=== PATIENT | female | born 1995 | race African-American/Black ===

== ENCOUNTER 2017-10-30 15:43 | Emergency (ER) | payer MEDICAID ==
[2017-10-30 15:50] VITALS: BP 130/88
--- NOTE | 2017-10-30 16:31 | ER Document Report ---
ED GI/ - General Chief Complaint: Vaginal Discharge Stated Complaint: STOMACH PAIN Time Seen by Provider: 10/30/17 16:28 Mode of Arrival: Ambulatory Information source: Patient Notes: 21 yo female with vaginal discharge with odor and no menses for 2 months. No fever. No pelvic pain. TRAVEL OUTSIDE OF THE [place] IN LAST 30 DAYS: No - Related Data Allergies/Adverse Reactions: No Known Allergies Allergy (Verified 10/30/17 15:45) Past Medical History - General Information source: Patient - Social History Smoking Status: Never Smoker Chew tobacco use (# tins/day): No Frequency of alcohol use: None Drug Abuse: None Lives with: Family Family History: Reviewed & Not Pertinent Patient has suicidal ideation: No Patient has homicidal ideation: No - Medical History Medical History: Negative Renal/ Medical History: Denies: Hx Peritoneal Dialysis Surgical Hx: Negative Review of Systems - Review of Systems Constitutional: No symptoms reported EENT: No symptoms reported Cardiovascular: No symptoms reported Respiratory: No symptoms reported Gastrointestinal: No symptoms reported Genitourinary: No symptoms reported Female Genitourinary: See HPI Musculoskeletal: No symptoms reported Skin: No symptoms reported Hematologic/Lymphatic: No symptoms reported Neurological/Psychological: No symptoms reported Physical Exam - Vital signs Vitals: Temp Pulse Resp BP Pulse Ox 99.2 F 90 16 130/88 H 99 10/30/17 15:49 10/30/17 15:49 10/30/17 15:49 10/30/17 15:49 10/30/17 15:49 Interpretation: Normal - General General appearance: Appears well, Alert - HEENT Head: Normocephalic, Atraumatic Eyes: Normal Pupils: PERRL Neck: Supple - Respiratory Respiratory status: No respiratory distress Chest status: Nontender Breath sounds: Normal Chest palpation: Normal - Cardiovascular Rhythm: Regular Heart sounds: Normal auscultation Murmur: No - Abdominal Inspection: Normal Distension: No distension Bowel sounds: Normal Tenderness: Nontender Organomegaly: No organomegaly - Back Back: Normal, Nontender - Extremities General upper extremity: Normal inspection, Nontender, Normal color, Normal ROM , Normal temperature General lower extremity: Normal inspection, Nontender, Normal color, Normal ROM , Normal temperature, Normal weight bearing. No: Cindy's sign - Neurological Neuro grossly intact: Yes Cognition: Normal Orientation: AAOx4 [place] Coma Scale Eye Opening: Spontaneous [place] Coma Scale Verbal: Oriented Olivia Coma Scale Motor: Obeys Commands Olivia Coma Scale Total: 15 Speech: Normal Motor strength normal: LUE, RUE, LLE, RLE Sensory: Normal - Psychological Associated symptoms: Normal affect, Normal mood - Skin Skin Temperature: Warm Skin Moisture: Dry Skin Color: Normal Course - Re-evaluation Re-evalutation: 10/30/17 17:56 Wet prep shows trichomonas and we will treat her for that and I recommended treatment for possible gonorrhea and chlamydia. She will call me back for those results. Urinalysis and test are negative. She will follow-up with the health department for amenorrhea. 10/30/17 20:00 gonorrhea positive, chlmaydia negative, spoke with pt over the phone. and she wanted it sent to [phone] via text but i also made a copy for her. she will let the partner know that he needs to be treated. 10/31/17 23:15 - Vital Signs Vital signs: Temp Pulse Resp BP Pulse Ox 99.2 F 90 16 130/88 H 99 10/30/17 15:49 10/30/17 15:49 10/30/17 15:49 10/30/17 15:49 10/30/17 15:49 - Laboratory Laboratory results interpreted by me: 10/30/17 10/30/17 16:40 16:40 Urine Urobilinogen 4.0 H Ur Leukocyte Esterase SMALL H N.gonorrhoeae DNA (PCR) DETECTED H Discharge - Discharge Clinical Impression: Trichomonas, Amenorrhea Condition: Good Disposition: HOME, SELF-CARE Instructions: Azithromycin ([facility]), Metronidazole ([facility]), [facility] Department, Rocephin ([facility]), Trichomonas Infection ([facility]) Additional Instructions: Call me in 2 hours for the STD culture result at [phone] Rocephin for possible gonorrhea Azithromycin for chlamydia Metronidazole or Flagyl for the Trichomonas Your partner will need to be treated for trichomonas and if the gonorrhea or chlamydia is positive he will treatment also Return to the emergency room any concerns
[2017-10-30 17:00] LABS: BACTERIA (WET MOUNT) 4+ BACTERIA SEEN; EPITHELIALS (WET MOUNT) 3+ EPITHELIALS SEEN; RBCS (WET MOUNT) RARE RBCS SEEN; T.VAGINALIS (WET MOUNT) TRICHOMONAS SEEN; WBCS (WET MOUNT) 3+ WBCS SEEN; YEAST (WET MOUNT) NO YEAST SEEN
[2017-10-30 17:13] LABS: APPEARANCE,URINE SLIGHTLY-CLOUDY; BILIRUBIN,URINE NEGATIVE (NEGATIVE); COLOR,URINE YELLOW; GLUCOSE, URINE NEGATIVE (NEGATIVE); KETONES,URINE NEGATIVE (NEGATIVE); LEUKOCYTE ESTERASE,URINE SMALL (NEGATIVE); NITRITE,URINE NEGATIVE (NEGATIVE); PROTEIN,URINE NEGATIVE (NEGATIVE); URINE SPECIFIC GRAVITY 1.024
[2017-10-30] MEDS ORDERED: CEFTRIAXONE INJ 250 MG VIAL IM ONE (17:53)
[2017-10-30] MEDS ORDERED: LIDOCAINE 1% INJ-PF (10 MG/ML) 30 ML SDV INFIL ONE (17:53)
[2017-10-30] MEDS ORDERED: ONDANSETRON 4 MG TAB.RAPDIS PO ONE (17:53)
[2017-10-30] MEDS ORDERED: AZITHROMYCIN 250 MG TABLET PO ONE (17:53)
[2017-10-30] MEDS ORDERED: METRONIDAZOLE 500 MG TABLET PO ONE (17:55)
[2017-10-30 18:27] LABS: CHLAM PCR NOT DETECTED (NOT DETECT); GON PCR DETECTED (NOT DETECT)
== END 2017-10-30 18:24 | disposition home or self-care (01) ==
LOC: ER 15:43
DX: A59.9 Trichomoniasis, unspecified (principal); N91.2 Amenorrhea, unspecified; A54.9 Gonococcal infection, unspecified
CPT/HCPCS: 99283; 36415; 87086; 87210; 84702; 87088; 81001; 87491; 87591; Q0144; S0119; J3490 ×2; J0696